=== PATIENT | female | born 1990 | race Caucasian/White ===

== ENCOUNTER 2017-06-24 17:57 | Emergency (ER) | payer MEDICAID, OTHER ==
[2017-06-24 17:57] VITALS: BMI 28.3
[2017-06-24 18:27] VITALS: RESP 18; TEMP 98
[2017-06-24] MEDS ORDERED: Sodium Chloride 0.9% 1,000 ML IV STA (18:51)
--- NOTE | 2017-06-24 19:06 | ED PDOC ---
HPI: Female Pain Time Seen by Provider: 06/24/17 18:30 Chief Complaint (Nursing): Female Genitourinary Chief Complaint (Provider): Vaginal bleeding History Per: Patient History/Exam Limitations: no limitations Onset/Duration Of Symptoms: Hrs (since this morning) Quality Of Discomfort: Cramping Associated Symptoms: denies: Nausea, Vomiting, Urinary Symptoms Additional Complaint(s): Patient is a 26 y/o female () with no past medical history, who presents to the ED complaining of vaginal bleeding since this morning. Patient reports having her last period around April 25, and reports she found out she was 4 days ago, after cramping pain prompted her to take a test. She notes that cramping became more severe today, with associated vaginal spotting this morning which progressed to heavier bleeding this evening. She denies any nausea, vomiting, or urinary symptoms. Patent does not have a regular doctor and has not started care. Abnormal Vaginal Bleeding: Yes Last Menstral Period: Around 04/25/2017 : 2 Para: 1 Past Medical History Reviewed: Historical Data, Nursing Documentation, Vital Signs Vital Signs: Last Vital Signs Temp 98.0 F 06/24/17 18:25 Pulse 75 06/24/17 18:25 Resp 18 06/24/17 18:25 BP 137/86 06/24/17 18:25 Pulse Ox 98 06/24/17 18:25 - Medical History PMH: Asthma (as a child) Denies: Anxiety, Bipolar Disorder, Depression, Paranoia, Post Traumatic Stress Disorder, Schizophrenia - Surgical History Surgical History: No Surg Hx - Family History Family History: States: No Known Family Hx - Social History Current smoker - smoking cessation education provided: No - Home Medications Home Medications: Ambulatory Orders Medication Instructions Recorded Cefpodoxime [Vantin] 200 mg PO BID #0 tab 03/17/15 Ibuprofen [Motrin Tab] 600 mg PO Q8 PRN #60 tab 06/24/17 - Allergies Allergies/Adverse Reactions: Allergies Allergy/AdvReac Type Severity Reaction Status Date / Time No Known Allergies Allergy Verified 06/24/17 18:25 Review of Systems ROS Statement: Except As Marked, All Systems Reviewed And Found Negative Gastrointestinal: Positive for: Abdominal Pain (cramping). Negative for: Nausea , Vomiting Genitourinary Female: Positive for: Vaginal Bleeding. Negative for: Dysuria, Hematuria Physical Exam - Reviewed Nursing Documentation Reviewed: Yes Vital Signs Reviewed: Yes - Physical Exam Appears: Positive for: Non-toxic, No Acute Distress Head Exam: Positive for: ATRAUMATIC, NORMOCEPHALIC Skin: Positive for: Warm, Dry. Negative for: Pallor Eye Exam: Positive for: EOMI, PERRL Neck: Positive for: Painless ROM, Supple Gastrointestinal/Abdominal: Positive for: Bowel Sounds, Soft, Tenderness ( suprapubic ttp). Negative for: Mass, Distended, Guarding, Rebound Back: Positive for: Normal Inspection. Negative for: Decreased ROM Extremity: Positive for: Normal ROM. Negative for: Pedal Edema Lymphatic: Negative for: Adenopathy Neurologic/Psych: Positive for: Alert. Negative for: Motor/Sensory Deficits - Laboratory Results Result Diagrams: 06/24/17 19:46 - ECG O2 Sat by Pulse Oximetry: 98 (RA) Pulse Ox Interpretation: Normal Medical Decision Making Medical Decision Making: Time: 18:31 Initial Impression: Vaginal bleeding in Differential: Threatened miscarriage, inevitable miscarriage, missed AB, urinary tract infection Initial Plan: --Type and screen --Beta-HCG, Quantitative --ED Urine dipstick --CBC --Chlamydia/GC RNA, TMA --Sodium Chloride 0.9% IV 1,000 mls/hr --Tylenol 975 mg PO --IV insertion --Urinalysis --OB Transvaginal US Accession No. : [id number] Patient Name / ID : ABRAM DAVIS / [id number] Exam Date : 06/24/2017 19:39:35 ( Approved ) Study Comment : Sex / Age : F / 26Y Creator : IRIS MARK Dictator : Viscosity Worker : Child Welfare Consultant : IRIS MARK Approver2 : Report Date : 06/24/2017 20:22:00 My Comment : [facility] Division of Radiology [address] [place] [address] Tel. no. Patient Name: RYAN VALVERDE Pt. Address: [address] [place] [address] Rec #: [id number] [place] [id number] Ordering Dr: John SALINAS, Davida Stanton Pt Order Location: [facility] : 1990 Female Age: 26 Order #: [id number] Reason for exam: vaginal bleed pelvic pain Ultrasound OB TRANSVAGINAL Exam Date: 06/24/17 This imaging exam was performed at [facility] ADDENDUM Addendum created by Iris Mark MD on 06/24/2017 8:25:13 PM EDT Findings were discussed with Davida Enciso at 8:25 PM EDT on 06/24/2017. Initial report created on 06/24/2017 8:22:01 PM EDT EXAM: US , Transvaginal EXAM DATE/TIME: 06/24/2017 6:50 PM CLINICAL HISTORY: 26 years old, female; Signs and symptoms; Lmp or gestational age (in weeks): 04/30/17; Antepartum complications; Hemorrhage; Additional info: Vaginal bleed pelvic pain TECHNIQUE: Real-time transvaginal obstetrical ultrasound of the maternal pelvis and a first trimester with image documentation. Transvaginal imaging was used for better evaluation of the fetus and adnexa. COMPARISON: There are no prior studies for comparison. FINDINGS: Gestation: There is no intrauterine gestation. There is no ectopic gestation. Uterus: Uterus measures approximately 6.8 x 4 x 4.5 cm. Endometrium measures approximately 9.6 mm in width. The cervix measures approximately 3 cm in length. There is a small nabothian cyst in the cervix. Ovaries: Right ovary measures approximately 2.4 x 1.2 x 2 cm. Left ovary measures approximately 1.7 x 1.6 x 1.6 cm. There are multiple small follicles bilaterally. There is flow in both ovaries on Doppler imaging. Free fluid: There is no free fluid. Adnexa: There are no adnexal masses. IMPRESSION: No intrauterine or ectopic gestation identified. Correlation with beta-hCG level advised Addendum Dictated By: Iris Mark MD Addendum Dictated Date Time:06/24/17 Addendum Signed by:Iris Mark MD Addendum signed Date Time: 06/24/172024 Addendum Transcribed By: PILI Addendum Transcribed Date Time: 06/24/17 WHIT EXAM: US , Transvaginal EXAM DATE/TIME: 06/24/2017 6:50 PM CLINICAL HISTORY: 26 years old, female; Signs and symptoms; Lmp or gestational age (in weeks): 04/30/17; Antepartum complications; Hemorrhage; Additional info: Vaginal bleed pelvic pain TECHNIQUE: Real-time transvaginal obstetrical ultrasound of the maternal pelvis and a first trimester with image documentation. Transvaginal imaging was used for better evaluation of the fetus and adnexa. COMPARISON: There are no prior studies for comparison. FINDINGS: Gestation: There is no intrauterine gestation. There is no ectopic gestation. Uterus: Uterus measures approximately 6.8 x 4 x 4.5 cm. Endometrium measures approximately 9.6 mm in width. The cervix measures approximately 3 cm in length. There is a small nabothian cyst in the cervix. Ovaries: Right ovary measures approximately 2.4 x 1.2 x 2 cm. Left ovary measures approximately 1.7 x 1.6 x 1.6 cm. There are multiple small follicles bilaterally. There is flow in both ovaries on Doppler imaging. Free fluid: There is no free fluid. Adnexa: There are no adnexal masses. IMPRESSION: No intrauterine or ectopic gestation identified. Correlation with beta-hCG level advised Dictated By: Iris Mark MD, MD Dictated Date/Time: 06/24/172021 Signed By: Iris Mark MD Date Signed: 2021 Transcribed By: PILI Transcribe Date/Time : 06/24/172021 WHIT Scribe Attestation: Documented by Veronique Smith, acting as a scribe for Davida Lopez MD Provider Scribe Attestation: All medical record entries made by the Scribe were at my direction and personally dictated by me. I have reviewed the chart and agree that the record accurately reflects my personal performance of the history, physical exam, medical decision making, and the department course for this patient. I have also personally directed, reviewed, and agree with the discharge instructions and disposition. Disposition - Clinical Impression Clinical Impression: Miscarriage Counseled Patient/Family Regarding: Studies Performed, Diagnosis, Need For Followup - Disposition Referrals: [facility] [Outside] Disposition: Routine/Home Disposition Time: 20:30 Condition: GOOD Prescriptions: Ibuprofen [Motrin Tab] 600 mg PO Q8 PRN #60 tab PRN Reason: Pain, Moderate (4-7) Instructions: Spontaneous Miscarriage (ED) Forms: [facility] ED School/Work Excuse
[2017-06-24 19:50] LABS: BASO # 0.1 K/uL (0.0-0.2); BASO % 0.9 % (0.0-2.0); EOS # 0.4 K/uL (0.0-0.7); EOS % 3.4 % (0.0-4.0); HEMATOCRIT 39.6 % (34.0-47.0); LYMPH # 3.6 K/uL (1.0-4.3); LYMPH % 34.2 % (20.0-40.0); MEAN CELL VOLUME 91.4 fl (81.0-99.0); MEAN CORPUSCULAR HEMOGLOBIN 29.8 pg (27.0-31.0); MEAN CORPUSCULAR HGB CONC 32.7 g/dL (33.0-37.0); MEAN PLATELET VOLUME 9.7 fl (7.2-11.7); MONO # 0.6 K/uL (0.0-0.8); MONO % 5.7 % (0.0-10.0); NEUT # 5.9 K/uL (1.8-7.0); NEUT % 55.8 % (50.0-75.0); RED CELL DISTRIBUTION WIDTH 13.4 % (11.5-14.5); WHITE BLOOD COUNT 10.7 K/uL (4.8-10.8)
--- NOTE | 2017-06-24 20:22 | US ---
EXAM: US , Transvaginal EXAM DATE/TIME: 06/24/2017 6:50 PM CLINICAL HISTORY: 26 years old, female; Signs and symptoms; Lmp or gestational age (in weeks): 04/30/17; Antepartum complications; Hemorrhage; Additional info: Vaginal bleed pelvic pain TECHNIQUE: Real-time transvaginal obstetrical ultrasound of the maternal pelvis and a first trimester with image documentation. Transvaginal imaging was used for better evaluation of the fetus and adnexa. COMPARISON: There are no prior studies for comparison. FINDINGS: Gestation: There is no intrauterine gestation. There is no ectopic gestation. Uterus: Uterus measures approximately 6.8 x 4 x 4.5 cm. Endometrium measures approximately 9.6 mm in width. The cervix measures approximately 3 cm in length. There is a small nabothian cyst in the cervix. Ovaries: Right ovary measures approximately 2.4 x 1.2 x 2 cm. Left ovary measures approximately 1.7 x 1.6 x 1.6 cm. There are multiple small follicles bilaterally. There is flow in both ovaries on Doppler imaging. Free fluid: There is no free fluid. Adnexa: There are no adnexal masses. IMPRESSION: No intrauterine or ectopic gestation identified. Correlation with beta-hCG level advised
[2017-06-24 21:26] VITALS: BP 117/78; PULSE 71
[2017-06-24 21:27] LABS: RBC URINE 1 /hpf (0-3); URINE BILIRUBIN NEGATIVE (NEGATIVE); URINE BLOOD LARGE (NEGATIVE); URINE COLOR STRAW (YELLOW); URINE GLUCOSE (UA) NEG (Normal); URINE KETONE NEGATIVE (NEGATIVE); URINE LEUKOCYTE ESTERASE NEG Leu/uL (Negative); URINE PROTEIN NEGATIVE (NEGATIVE); URINE UROBILINOGEN 0.2-1.0 mg/dL (0.2-1.0); WBC URINE 2 /hpf (0-5)
[2017-06-26 18:14] VITALS: O2SAT 98
== END 2017-06-24 21:27 | disposition home or self-care (01) ==
LOC: H.ER 17:57
DX: O03.9 Complete or unspecified spontaneous abortion without complication (principal); Z3A.09 9 weeks gestation of pregnancy; J45.909 Unspecified asthma, uncomplicated
CPT/HCPCS: 76817; 81003; 81025; 84702; 85025; 86850; 86900; 87491; 87591; 99282; J7040

== ENCOUNTER 2018-05-26 10:24 | Emergency (ER) | payer MEDICAID, OTHER ==
[2018-05-26 10:30] VITALS: BMI 35.3
[2018-05-26] MEDS ORDERED: Albuterol 0.083% Inhal Sol (2.5 mg/3 mL) UD INH STA ×2 (10:42→10:43)
--- NOTE | 2018-05-26 10:47 | ED PDOC ---
HPI: CCC, URI, Sore Throat Time Seen by Provider: 05/26/18 10:34 Chief Complaint (Provider): Cough History Per: Patient History/Exam Limitations: no limitations Onset/Duration Of Symptoms: Days (t) Current Symptoms Are (Timing): Still Present Additional Complaint(s): Pt. with cough, nasal congestion, runny nose, yellow phlegm, post-tussive vomit that is with phlegm. No dyspnea, chest pain. Has bodyaches. Has lower pelvic pressure. Is 32wks preg. No diarrhea. No weakness. Did not take anything for her symptoms. Past Medical History Reviewed: Nursing Documentation, Vital Signs Vital Signs: Last Vital Signs Temp 98.4 F 05/26/18 10:30 Pulse 110 H 05/26/18 10:30 Resp 17 05/26/18 10:30 BP 106/69 05/26/18 10:30 Pulse Ox 98 05/26/18 10:30 - Medical History PMH: Asthma Denies: Anxiety, Bipolar Disorder, Depression, Paranoia, Post Traumatic Stress Disorder, Chronic Kidney Disease, Schizophrenia - Surgical History Surgical History: No Surg Hx - Family History Family History: States: Unknown Family Hx - Home Medications Home Medications: Ambulatory Orders Medication Instructions Recorded Pnv No.95/Ferrous Fum/Folic AC 1 each PO DAILY #90 tablet 11/19/17 [ Vitamins Tablet] Albuterol Sulfate [Proair Hfa] 0.09 mg IH Q6H PRN #2 inh 05/26/18 Azithromycin [Zithromax] 250 mg PO DAILY 5 Days tab 05/26/18 - Allergies Allergies/Adverse Reactions: Allergies Allergy/AdvReac Type Severity Reaction Status Date / Time No Known Allergies Allergy Verified 11/19/17 12:25 Review of Systems ROS Statement: Except As Marked, All Systems Reviewed And Found Negative ENT: Positive for: Nose Congestion Respiratory: Positive for: Cough Gastrointestinal: Positive for: Vomiting Physical Exam - Reviewed Nursing Documentation Reviewed: Yes Vital Signs Reviewed: Yes - Physical Exam Appears: Positive for: Non-toxic, No Acute Distress Head Exam: Positive for: ATRAUMATIC, NORMAL INSPECTION, NORMOCEPHALIC Skin: Positive for: Normal Color, Warm, DRY Eye Exam: Positive for: EOMI, Normal appearance, PERRL ENT: Positive for: Nasal Congestion. Negative for: Pharyngeal Erythema, Tonsillar Exudate Neck: Positive for: Normal, Painless ROM, Supple Cardiovascular/Chest: Positive for: Regular Rate, Rhythm Respiratory: Positive for: Wheezing (b/l). Negative for: Accessory Muscle Use, Respiratory Distress Gastrointestinal/Abdominal: Positive for: Normal Exam, Soft. Negative for: Tenderness Back: Positive for: Normal Inspection. Negative for: L CVA Tenderness, R CVA Tenderness Extremity: Positive for: Normal ROM. Negative for: Tenderness, Pedal Edema Neurologic/Psych: Positive for: Alert, Oriented - ECG O2 Sat by Pulse Oximetry: 98 Pulse Ox Interpretation: Normal - Progress ED Course And Treament: 1130: Stable. Is preg 32wks. Will need to go to OBGYN ED for eval of preg. Pt. likely asthma flare and uri. Will rx albuterol and zpak. Fu with pcp. Improvement after tx. Disposition - Clinical Impression Clinical Impression: Asthma, URI (upper respiratory infection) - Patient ED Disposition Is Patient to be Admitted: No Counseled Patient/Family Regarding: Diagnosis, Need For Followup, Rx Given - Disposition Referrals: [facility] [Outside] - 05/27/18 Disposition: Routine/Home Disposition Time: 10:50 Condition: STABLE Additional Instructions: Go to OB ED for further evaluation. Return if not better in 3 days. Prescriptions: Albuterol Sulfate [Proair Hfa] 0.09 mg IH Q6H PRN #2 inh PRN Reason: Wheezing Azithromycin [Zithromax] 250 mg PO DAILY 5 Days tab Instructions: Asthma in Adults
[2018-05-26] MEDS ORDERED: Albuterol 0.083% Inhal Sol (2.5 mg/3 mL) UD ONE (10:57)
[2018-05-26] MEDS ORDERED: guaiFENesin 100 mg/5 ml Syrup UD PO PRN (13:20)
[2018-05-26 14:19] LABS: SQUAMOUS EPITHIAL 2 /hpf (0-5); URINE BACTERIA MOD (<OCC); URINE BILIRUBIN NEGATIVE (NEGATIVE); URINE BLOOD NEGATIVE (NEGATIVE); URINE CLARITY SLIGHTY-CLOUDY (Clear); URINE COLOR YELLOW (YELLOW); URINE GLUCOSE (UA) NEG (Normal); URINE LEUKOCYTE ESTERASE TRACE Leu/uL (Negative); URINE PROTEIN NEGATIVE (NEGATIVE); URINE UROBILINOGEN 0.2-1.0 mg/dL (0.2-1.0)
[2018-05-26 15:19] LABS: SPECIMEN COMMENT SL. CLOUDY
[2018-05-26 20:19] VITALS: BP 109/59; PULSE 93; RESP 18; TEMP 98.1; O2SAT 100
--- NOTE | 2018-05-27 08:02 | OBDCSUM ---
Datetime: 05/26/2018 15:29 Discharge Diagnosis, Provider: False Labor - Undelivered Disch Activity Restrictions: No sexual activity; Nothing in vagina - [place], tampons, douche
--- NOTE | 2018-05-27 08:03 | OBHP ---
Datetime: 05/26/2018 13:24 IP Adm Impression: , intrauterine ; No Active Labor; Demise IP Chief Complaint Other: Pelvic pressure and cold-like symptoms IP Admit Plan: Observation/Evaluation Admit Comment, IP Provider: 27 yo at 32.5 GA based on LMP of 10/09/17 presents with pelvic pr essure. She originally went to [facility] ED because of cold-like symptoms which resulted in two prescriptions- Azithromycin 250mg po daily for 5 days and Proair Q6H PRN for wheezing but wanted to be evaluated by OB because of pelvic pressure. She reports that this pelvic pressure began several weeks ago and has been consistent in pressure quality- 03/03. Denies vaginal bleeding, contractions, gush of fluid and s he states that baby is moving well. She denies dizziness, headache, fever, blurry vision, chest pain, shortness of breath, diarrhea, dysuria or frequency. Primary OB: [facility]- Dr. Urrutia PMH: Denies Social HX: denies smoking, alcohol use, and illicit drug use. Family history: father with HTN and DM Surgical history: Denies. Allergies: NKDA Medications: vitamins daily Labs: previous labs not provided by the patient Physical exam: Patient is coushing during exam. She is in no acute distress Heart: S1 and S2. No murmurs, gallops or rubs. Lungs: Clear air entry appreciated bilaterally, no wheezing, rhonchi or rales appreciated on exam. Abdomen: Gravid, soft non-tender Vaginal exam: Prepress Stripper present. No lesions noted on inspection. Cervix is closed on exam. Speculu m exam performed for fibronectin testing. Bedside ultrasound performed- Cephalic presentation appreciated. monitor: baseline 150; Moderate variability; Accerelations present; No decelerations; no con tractions. Category 1 tracing. Assessment: 27 yo at 32.5 GA based on LMP of 10/09/17 presents with pelvic pressure. Plan: - Continue heart monitoring - U/A - FFN - Robitussin 100mg Q4H for cough. Discussed with Dr. Paulo Parker, PGY1- global president. Patient reassessed 3:29 - U/A positive for Moderate bacteria with trace leukocyte esterase, negative nitrates. - fibronectin- negative. - Given reassuring heart tracing and negative fibronectin, patient stable to go home w ith written script for Cephalexin 500mg po TID x7days (#21 tabs). -Patient advised that if she experiences vaginal bleeding, contractions, decreased movement or gush of fluid to return to the OB E.D. Discussed with Dr. Paulo Parker, PGY-1 - global president. OB Hospitalist on-call...Pt seen and examiend with PGY1 agree wtih note. MAHNDO Pelvic Type - PN: Adequate Extremities - PN: Normal Abdomen - PN: Normal Back - PN: Not Done Breast - PN: Not Done Lungs - PN: Normal Heart - PN: Normal Thyroid - PN: Not Done Neurologic - PN: Not Done HEENT - PN: Normal General - PN: Normal FHR - Baseline A Provider: 150 Membranes, Provider: Intact Contraction Comments Provider: None Comments, ACOG Physical Exam: Physical exam: Patient is coushing during exam. She is in no acute dis tress Heart: S1 and S2. No murmurs, gallops or rubs. Lungs: Clear air entry appreciated bilaterally Abdomen: Gravid, soft non-tender Vaginal exam: Prepress Stripper present. No lesions noted on inspection. Cervix is closed on exam. Speculu m exam performed for fibronectin testing. Bedside ultrasound performed- Cephalic presentation appreciated. monitor: baseline 150; Moderate variability; Accerelations present; No decelerations; no con tractions. Category 1 tracing. Pool Provider: Negative EGA AdmitDate IP: 32.5 Vital Signs Provider: Reviewed; Within Normal Limits IP Chief Complaint: Maternal discomfort; Other NICHD Variability Prov Fetus A: Moderate 6-25bpm NICHD Accel Fetus A IP Provider: 15X15 FHR Category Provider Fetus A: Category I NICHD Decel Fetus A IP Provider: None Dilatation, Provider: closed Genitourinary Exam: Normal DTRs - PN: Not Done
== END 2018-05-26 15:44 | disposition home or self-care (01) ==
LOC: H.ER 10:24 → H.EROB 12:34 → H.ER 15:44
DX: O99.513 Diseases of the respiratory system complicating pregnancy, third trimester (principal); J45.909 Unspecified asthma, uncomplicated; J06.9 Acute upper respiratory infection, unspecified; Z3A.32 32 weeks gestation of pregnancy; Z82.49 Family history of ischemic heart disease and other diseases of the circulatory system; Z83.3 Family history of diabetes mellitus